=== PATIENT | female | born 1960 | race Caucasian/White ===

== ENCOUNTER 2018-10-04 21:02 | Emergency (ER) | payer OTHER ==
--- OUTSIDE RECORDS SUMMARY | 2018-10-04 21:07 | XMS REPORT ---
:1960 [facility] Address [address] [place] [address] Care Team Providers Name Role Phone ELLIE ARIAS Unavailable Unavailable Problems This patient has no known problems. Allergies, Adverse Reactions, Alerts This patient has no known allergies or adverse reactions. Medications This patient has no known medications. Results Test Description Test Time Test Comments Text Results Atomic Results Result Comments MR, BRAIN, WITH 2018-09-02 14:47:00 FINAL REPORT MR , BRAIN, WITH \T\ WITHOUT CONTRAST INDICATION: NEUROFIBROMOTOSIS TECHNIQUE: Multiplanar, multisequence MR imaging of the brain was obtained before and after uneventful administration of gadolinium contrast. COMPARISON: January 27, 2018 FINDINGS:Redemonstration of innumerable parafalcine and predominantly left sided meningiomas with stable mass effect but no underlying parenchymal edema. There is no abnormal parenchymal enhancement. No infarct or hemorrhage is present. Deviation of the midline falx anteriorly is stable. Invasion of the superior sagittal sinus anteriorly again demonstrated with compensatory dilated venous structure in the left anterior frontal region. There is distention of the internal auditory canals bilaterally, also unchanged compared to prior examination. Left extension into the CPA is stable. There is minimal mass effect on the cerebellum without edema or invasion. Ventricular configuration and included minimal surfaces are unremarkable. No abnormal signal characteristics are identified within the calvarium or skull base. There is no paranasal sinus disease. Orbital contents are unremarkable for technique. 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 Signed: JR Pappas Robert MDReport Verified Date/Time: 09/02/2018 14:47:22 Reading Location: [address] Neuro Reading Room , SPINE, CERVICAL, 2018-09-02 14:26:00 FINAL REPORT MRI WITH cervical, thoracic, and lumbar spine with and without contrast 09/02/2018 2:22 PM CLINICAL HISTORY: NEUROFIBROMATOSIS TECHNIQUE: MRI of the cervical, thoracic, and lumbar spine was performed utilizing the following sequences: Sagittal T1, T2, STIR; axial T1 and T2; postcontrast sagittal and axial T1. COMPARISON: None available FINDINGS: There is no mass or abnormal enhancement within or about the spine. There is no fracture or malalignment. Bone marrow signal intensity is non concerning. The spinal cord is normal in size and signal intensity. 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 Cervical and thoracic spinal canal diameter within normal limits. There are mild degenerative changes, without additional central canal or remarkable foraminal stenosis. There is a 14 mm enhancing lesion in the posterior right lobe of the thyroid gland. The paraspinal musculature is intact. IMPRESSION: 1. No evidence for neurofibromatosis within or about the spine. 2. Indeterminate right thyroid nodule, for which carcinoma cannot be excluded and further evaluation with ultrasound is recommended. Signed: Clovis [facility] Verified Date/Time: 09/02/2018 14:26:16 Reading Location: [facility] Radiology Reading Room , SPINE, LUMBAR, 2018-09-02 14:26:00 FINAL REPORT MRI WITH cervical, thoracic, and lumbar spine with and without contrast 09/02/2018 2:22 PM CLINICAL HISTORY: NEUROFIBROMATOSIS TECHNIQUE: MRI of the cervical, thoracic, and lumbar spine was performed utilizing the following sequences: Sagittal T1, T2, STIR; axial T1 and T2; postcontrast sagittal and axial T1. COMPARISON: None available FINDINGS: There is no mass or abnormal enhancement within or about the spine. There is no fracture or malalignment. Bone marrow signal intensity is non concerning. The spinal cord is normal in size and signal intensity. 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 Cervical and thoracic spinal canal diameter within normal limits. There are mild degenerative changes, without additional central canal or remarkable foraminal stenosis. There is a 14 mm enhancing lesion in the posterior right lobe of the thyroid gland. The paraspinal musculature is intact. IMPRESSION: 1. No evidence for neurofibromatosis within or about the spine. 2. Indeterminate right thyroid nodule, for which carcinoma cannot be excluded and further evaluation with ultrasound is recommended. Signed: Clovis Chang Verified Date/Time: 09/02/2018 14:26:16 Reading Location: [facility] Radiology Reading Room , SPINE, THORACIC, 2018-09-02 14:26:00 FINAL REPORT MRI WITH cervical, thoracic, and lumbar spine with and without contrast 09/02/2018 2:22 PM CLINICAL HISTORY: NEUROFIBROMATOSIS TECHNIQUE: MRI of the cervical, thoracic, and lumbar spine was performed utilizing the following sequences: Sagittal T1, T2, STIR; axial T1 and T2; postcontrast sagittal and axial T1. COMPARISON: None available FINDINGS: There is no mass or abnormal enhancement within or about the spine. There is no fracture or malalignment. Bone marrow signal intensity is non concerning. The spinal cord is normal in size and signal intensity. 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 Cervical and thoracic spinal canal diameter within normal limits. There are mild degenerative changes, without additional central canal or remarkable foraminal stenosis. There is a 14 mm enhancing lesion in the posterior right lobe of the thyroid gland. The paraspinal musculature is intact. IMPRESSION: 1. No evidence for neurofibromatosis within or about the spine. 2. Indeterminate right thyroid nodule, for which carcinoma cannot be excluded and further evaluation with ultrasound is recommended. Signed: Clovis Chang Verified Date/Time: 09/02/2018 14:26:16 Reading Location: [facility] Radiology Reading Room -CREATININE 2018-09-02 12:06:00 Test Item Value Reference Range Comments POC-CREATININE (BEAKER) (test 0.8 mg/dL 0.6-1.3 TESTED AT [facility] [place]7 [id number]) [facility] [address] POC-EGFR (OMIDAKER) (test 74 mL/min/1.73M2 [id number]) MR, BRAIN, [id number] 14:35:00FINAL REPORT MRI Brain with and without contrast [facility] protocol 01/27/2018 2:19 PM CLINICAL HISTORY: meningioma TECHNIQUE: Multiplanar, multisequence MR imaging of the brain wasperformed, utilizing the following imaging sequences: Axial T1, T2, FLAIR, GRE, DWI/ADC; sagittal T1; postcontrast axial, sagittal, and coronal T1. Thin section axial T2 FLAIR and pre and post contrastT1 FMP imaging sequences were obtained for intraoperative neuronavigation purposes. COMPARISON: Noneavailable. FINDINGS: There are multifocal calcified and noncalcified meningiomas along the falx cerebri, overlying the left frontal and parietal lobes, within the anterior left middle cranial fossa, and potentially within the left olfactory groove. Tumors in the left greater than right internal auditory canals, with extension into the left cerebellopontine angle cistern, may reflect schwannomas and/or meningiomas. The dominant tumoral focus lies along the left falx cerebri, extending over the parasagittal left frontal convexity. Approximate tumor dimensions are 6.9 cm AP by 3.7 cm transverse by 3.8cm craniocaudal. There is invasion of the adjacent superior sagittal sinus. There is deformation of the subjacent brain parenchyma, without compressive edema. There is rightward bowing of the falx cerebri, without parenchymal herniation. There is no infarct, hematoma, hydrocephalus, or extra-axial collection. Normal appearing flow-voids are present in the remaining intracranial vascular structures. The sellar and pineal regions, craniocervical junction, orbits, face, and remainder of the skull base are unremarkable. IMPRESSION: 1. Findings suggesting neurofibromatosis type 2. 2. Dominant left falcine/parasagittal frontal meningioma with associated superior sagittal sinus invasion but no current compressive edema. Signed: Clovis Chang MDRrománort Verified Date/Time: 01/27/2018 14:35:37 Reading Location: [facility] Radiology Reading Room Electronically signed by: CLOVIS CHANG M.D. on 02:35 PM
--- OUTSIDE RECORDS SUMMARY | 2018-10-04 21:07 | XMS REPORT | Clinical Summary ---
:1960 Author Organization [facility] Address [address] [place] [address] Care Team Providers Name Role Phone Pcp, No Primary Care Provider Unavailable Allergies No Known Allergies Medications Not on file Active Problems Not on file Encounters Date Type Specialty Care Team Description 09/02/2018 Hospital Encounter Radiology Edi Singh Neurofibromatosis (HCC) 09/02/2018 Hospital Encounter Radiology Edi Singh Neurofibromatosis (HCC) 09/02/2018 Hospital Encounter Radiology Edi Singh Neurofibromkathi (HCC) 09/02/2018 Hospital Encounter Radiology Edi Singh Neurofibromatosis (HCC) 08/23/2018 Hospital Encounter Radiology Edi Singh Neurofibromkathi (HCC) 08/23/2018 Hospital Encounter Radiology Edi Singh Neurofibromatosis (HCC) 08/23/2018 Hospital Encounter Radiology Edi Singh Neurofibromkathi (HCC) 08/05/2018 Outside Orders Radiology Edi Singh Neurofibromatosis (HCC ) (Primary Dx) 01/27/2018 Hospital Encounter Radiology Edi Singh Meningioma (HCC) 01/07/2018 Outside Orders Edi Singh, Meningioma (HCC) (Primary MD Dx) after 10/03/2017 Social History Tobacco Use Types Packs/Day Years Used Date Never Assessed Sex Assigned at Date Recorded Not on file Job Start Date Occupation Industry Not on file Not on file Not on file Travel History Travel Start Travel End No recent travel history available. Last Filed Vital Signs Not on file Plan of Treatment Not on file Procedures Procedure Name Priority Date/Time Associated Diagnosis Comments MR BRAIN WITHOUT & Routine 09/02/2018 2:33 Neurofibromatosis (HCC) Results for this WITH IV CONTRAST PM [employer] procedure are in the results section. MR CERVICAL SPINE Routine 09/02/2018 2:33 Neurofibromatosis (HCC) Results for this W/WO CONTRAST PM [employer] procedure are in the results section. MR THORACIC SPINE Routine 09/02/2018 2:00 Neurofibromatosis (HCC) Results for this W & WO CONTRAST PM [employer] procedure are in the results section. MR LUMBAR SPINE W Routine 09/02/2018 1:58 Neurofibromatosis (HCC) Results for this & WO CONTRAST PM [employer] procedure are in the results section. POCT-CREATININE Routine 09/02/2018 12:03 Results for this PM [employer] procedure are in the results section. MR BRAIN WITHOUT & Routine 01/27/2018 1:35 Meningioma (HCC) Results for this WITH IV CONTRAST PM CDT procedure are in the results section. after 10/03/2017 Results MR cervical spine without & with IV contrast (09/02/2018 2:33 PM [employer]) Narrative Performed At FINAL REPORT [employer] [facility] MRI cervical, thoracic, and lumbar spine with and [...] with ultrasound is recommended. Signed: Clovis Chang MD Report Verified Date/Time:09/02/2018 14:26:16 Reading Location: [facility] Radiology Reading Room Procedure Note Interface, External Ris In - 09/02/2018 2:33 PM [employer] FINAL REPORT MRI cervical, thoracic, and lumbar spine with and [...] with ultrasound is recommended. Signed: Clovis Chang MD Report Verified Date/Time: 09/02/2018 14:26:16 Reading Location: [facility] Radiology Reading Room Performing Organization Address City/State/Zipcode Phone Number [employer] MR brain without & with IV contrast (09/02/2018 2:33 PM [employer])Only the most recent of2 resultswithin the time period is included. Narrative Performed At FINAL REPORT [employer] MR, BRAIN, WITH \T\ WITHOUT CONTRAST INDICATION: NEUROFIBROMOTOSIS TECHNIQUE: Multiplanar, multisequence MR imaging of the brain was obtained before and after uneventful administration of gadolinium contrast. COMPARISON: January 27, 2018 FINDINGS: Redemonstration of innumerable parafalcine and predominantly left sided [...] neurofibromatosis type II. Signed: JR Pappas Robert MD Report Verified Date/Time:09/02/2018 14:47:22 Reading Location: [address] Neuro Reading Room Procedure Note Interface, External Ris In - 09/02/2018 2:49 PM [employer] FINAL REPORT MR, BRAIN, WITH \T\ WITHOUT CONTRAST INDICATION: NEUROFIBROMOTOSIS TECHNIQUE: Multiplanar, multisequence MR imaging of the brain was obtained before and after uneventful administration of gadolinium contrast. COMPARISON: January 27, 2018 FINDINGS: Redemonstration of innumerable parafalcine and predominantly left sided [...] neurofibromatosis type II. Signed: JR Pappas Robert MD Report Verified Date/Time: 09/02/2018 14:47:22 Reading Location: [facility] Neuro Reading Room Performing Organization Address City/State/Zipcode Phone Number [employer] MR thoracic spine without & with IV contrast (09/02/2018 2:00 PM [employer]) Narrative Performed At FINAL REPORT [facility] MRI cervical, thoracic, and lumbar spine with and [...] with ultrasound is recommended. Signed: Clovis Chang MD Report Verified Date/Time:09/02/2018 14:26:16 Reading Location: [facility] Radiology Reading Room Procedure Note Interface, External Ris In - 09/02/2018 2:33 PM [employer] FINAL REPORT MRI cervical, thoracic, and lumbar spine with and [...] with ultrasound is recommended. Signed: Clovis Chang MD Report Verified Date/Time: 09/02/2018 14:26:16 Reading Location: [facility] Radiology Reading Room Performing Organization Address City/State/Zipcode Phone Number [facility] MR lumbar spine without & with IV contrast (09/02/2018 1:58 PM [employer]) Narrative Performed At FINAL REPORT [facility] MRI cervical, thoracic, and lumbar spine with and [...] with ultrasound is recommended. Signed: Clovis Chang MD Report Verified Date/Time:09/02/2018 14:26:16 Reading Location: [facility] Radiology Reading Room Procedure Note Interface, External Ris In - 09/02/2018 2:33 PM [employer] FINAL REPORT MRI cervical, thoracic, and lumbar spine with and [...] with ultrasound is recommended. Signed: Clovis Chang MD Report Verified Date/Time: 09/02/2018 14:26:16 Reading Location: [facility] Radiology Reading Room Performing Organization Address City/State/Zipcode Phone Number [employer] POC-Creatinine (09/02/2018 12:03 PM [employer]) POC-Creatinine 0.8Comment: TESTED AT 0.6 - 1.3 mg/dL [facility] [address] [facility] [address] POC-EGFR 74 mL/min/1.73M2 [facility] Specimen Blood Narrative Performed At Performing Organization Address City/[facility]/Zipcode Phone Number [facility] MEDICAL [address] [place] [address] CENTER after 10/03/2017 Insurance Payer Benefit Plan / Group Subscriber ID Type Phone Address [facility] CHOICE xxxxxxxxxxxx HMO/POS [phone] CHOICE EXCHANGE
[2018-10-04] MEDS ORDERED: NA CHLORIDE 0.9% 1,000 ML ONE (21:27)
[2018-10-04] MEDS ORDERED: ONDANSETRON 4 MG/2 ML VIAL ONE (21:27)
[2018-10-04 21:50] LABS: Absolute Lymphocytes (CBC) 0.3 K/uL (0.7-4.9); Absolute Monocytes 0.7 K/uL (0.1-1.3); Absolute Neutrophil 14.7 K/uL (1.8-8.0); Basophils % 0.4 % (0-1.3); Eosinophils % 0.5 % (0-4.4); Hematocrit 48.8 % (36.0-45.0); Lymphocytes % 1.9 % (15.3-44.8); MPV 8.6 fL (7.6-11.3); Monocytes % 4.2 % (3.3-12.3)
[2018-10-04 22:05] LABS: Albumin 4.1 g/dL (3.4-5.0); Bilirubin Direct 0.2 mg/dL (0-0.2); Bilirubin Total 1.1 mg/dL (0.2-1.0); Protein, Total 8.1 g/dL (6.4-8.2)
[2018-10-04 22:19] LABS: Blood Morphology Comment NOT SEEN (NOT SEEN); Platelet Estimate ADEQ
[2018-10-05] MEDS ORDERED: ONDANSETRON 4 MG/2 ML VIAL ONE (00:56)
[2018-10-05] MEDS ORDERED: NA CHLORIDE 0.9% 1,000 ML ONE (01:01)
[2018-10-05 02:40] LABS: Absolute Lymphocytes (CBC) 0.5 K/uL (0.7-4.9); Absolute Neutrophil 9.9 K/uL (1.8-8.0); Basophils % 0.2 % (0-1.3); Eosinophils % 0.3 % (0-4.4); Hematocrit 37.8 % (36.0-45.0); Lymphocytes % 4.3 % (15.3-44.8); MPV 8.1 fL (7.6-11.3); Monocytes % 8.7 % (3.3-12.3); RBC Red Blood Cell Count 4.21 M/uL (3.86-4.86)
--- NOTE | 2018-10-05 05:29 | ER ---
Nurse's Notes [facility] Name: Kvng Salvador Age: 58 yrs Sex: Female : 1960 Arrival Date: 10/04/2018 Time: 21:04 Bed 8 Private MD: Diagnosis: Vomiting;Diarrhea, unspecified;Dehydration Presentation: 10/04 21:05 Presenting complaint: EMS states: She has been having nausea, vomiting and diarrhea ed1 since about 2pm. Her daughter reports a near syncopal episode DIVISION HEAD. Transition of care: patient was not received from another setting of care. Onset of symptoms was October 04, 2018. Risk Assessment: Do you want to hurt yourself or someone else? Patient reports no desire to harm self or others. Initial Sepsis Screen: Does the patient meet any 2 criteria? No. Patient's initial sepsis screen is negative. Does the patient have a suspected source of infection? No. Patient's initial sepsis screen is negative. Care prior to arrival: None. 21:05 Method Of Arrival: EMS: [facility] ed1 21:05 Acuity: BRIAN 3 ed1 Triage Assessment: 21:11 General: Appears uncomfortable, Behavior is calm, cooperative. Pain: Denies pain. EENT: ed1 Oral mucosa is moist. Neuro: Level of Consciousness is awake, alert, obeys commands, Oriented to person, place, time, situation, Reports dizziness, since 1400 today a syncopal episode DIVISION HEAD. Cardiovascular: Denies chest pain, Heart tones S1 S2 present. Respiratory: Airway is patent Respiratory effort is even, unlabored, Respiratory pattern is regular, symmetrical, Breath sounds are clear bilaterally. Denies cough, shortness of breath. GI: Abdomen is non-distended, Bowel sounds present X 4 quads. Abd is soft and non tender X 4 quads. Reports diarrhea, nausea, vomiting, Patient currently denies abdominal pain. : No signs and/or symptoms were reported regarding the genitourinary system. Derm: Skin is intact, is healthy with good turgor, Skin is dry, Skin is normal, Skin temperature is warm. Musculoskeletal: Circulation, motion, and sensation intact. Range of motion: intact in all extremities. Historical: - Allergies: 21:11 No Known Allergies; ed1 - Home Meds: 21:11 Testosterone VR 7.5 mg/mL Apply 1mL topically every day behind knee and alternate. ed1 [Active]; metoprolol tartrate 25 mg Oral tab 0.5 tab once daily [Active]; alprazolam 0.5 mg Oral tab 1 tab daily [Active]; T3/T4 10mcg/40mcg 1.5 tab daily [Active]; Progesterone 200 mg 1 cap nightly [Active]; - PMHx: 21:11 SVT; Brain tumors; Thyroid nodule; ed1 - PSHx: 21:11 None; ed1 - Immunization history:: Adult Immunizations up to date, Flu vaccine is not up to date. It has been more than one year since last vaccine. - Social history:: Smoking status: Patient/guardian denies using tobacco. - Ebola Screening: : Patient negative for fever greater than or equal to 101.5 degrees Fahrenheit, and additional compatible Ebola Virus Disease symptoms Patient denies exposure to infectious person Patient denies travel to an Ebola-affected area in the 21 days before illness onset No symptoms or risks identified at this time. Screenin:14 Abuse screen: Denies threats or abuse. Denies injuries from another. Nutritional ed1 screening: No deficits noted. Tuberculosis screening: No symptoms or risk factors identified. Fall Risk None identified. Assessment: 21:14 General: See triage assessment. GI: Abdomen is non-distended, Bowel sounds present X 4 ed1 quads. Abd is soft and non tender X 4 quads. Reports diarrhea, nausea, vomiting, Patient currently denies abdominal pain. 22:11 Reassessment: Patient appears in no apparent distress at this time. Patient and/or ed1 family updated on plan of care and expected duration. Pain level reassessed. Patient is alert, oriented x 3, equal unlabored respirations, skin warm/dry/pink. Patient states feeling better. Patient states symptoms have improved. 23:14 Reassessment: Patient appears in no apparent distress at this time. No changes from ed1 previously documented assessment. Patient and/or family updated on plan of care and expected duration. Pain level reassessed. Patient is alert, oriented x 3, equal unlabored respirations, skin warm/dry/pink. 23:53 Reassessment: Patient appears in no apparent distress at this time. Patient and/or ed1 family updated on plan of care and expected duration. Pain level reassessed. Patient is alert, oriented x 3, equal unlabored respirations, skin warm/dry/pink. Patient denies pain at this time. Patient states feeling better. Patient states symptoms have improved. 10/05 00:45 Reassessment: Patient and/or family updated on plan of care and expected duration. Pain ed1 level reassessed. Patient is alert, oriented x 3, equal unlabored respirations, skin warm/dry/pink. Pt reports nausea returning. 01:30 Reassessment: Patient appears in no apparent distress at this time. Patient and/or ed1 family updated on plan of care and expected duration. Pain level reassessed. Patient is alert, oriented x 3, equal unlabored respirations, skin warm/dry/pink. Patient states symptoms have improved. 02:15 Reassessment: Patient appears in no apparent distress at this time. Patient and/or ed1 family updated on plan of care and expected duration. Pain level reassessed. Patient is alert, oriented x 3, equal unlabored respirations, skin warm/dry/pink. Patient states symptoms have improved. 03:15 Reassessment: Patient appears in no apparent distress at this time. No changes from ed1 previously documented assessment. Patient and/or family updated on plan of care and expected duration. Pain level reassessed. Patient is alert, oriented x 3, equal unlabored respirations, skin warm/dry/pink. Patient denies pain at this time. 04:00 Reassessment: Patient appears in no apparent distress at this time. Patient and/or ed1 family updated on plan of care and expected duration. Pain level reassessed. Patient is alert, oriented x 3, equal unlabored respirations, skin warm/dry/pink. Pt ambulatory to bathroom with steady gait. Pt states "I want to make sure I can eat and drink something before I go home." Dr. Vidales notfied. Water and crackers given. Patient states feeling better. Patient states symptoms have improved. Vital Signs: 10/04 21:11 BP 125 / 80; Pulse 95; Resp 17; Temp 97.7(O); Pulse Ox 100% on R/A; Weight 88 kg; ed1 Height 5 ft. 6 in. (167.64 cm); Pain 0/10; 22:11 BP 117 / 76; Pulse 94; Resp 20; Pulse Ox 99% on R/A; Pain 0/10; ed1 23:14 BP 98 / 63; Pulse 82; Resp 17; Pulse Ox 98% on R/A; Pain 0/10; ed1 23:53 BP 105 / 75; Pulse 82; Resp 17; Pulse Ox 98% on R/A; Pain 0/10; ed1 10/05 00:45 BP 120 / 70; Pulse 89; Resp 15; Pulse Ox 99% on R/A; Pain 0/10; ed1 01:30 BP 106 / 65; Pulse 89; Resp 20; Pulse Ox 97% on R/A; Pain 0/10; ed1 02:15 BP 105 / 66; Pulse 82; Resp 18; Pulse Ox 99% on R/A; Pain 0/10; ed1 03:15 BP 101 / 63; Pulse 78; Resp 16; Pulse Ox 98% on R/A; Pain 0/10; ed1 04:00 BP 104 / 65; Pulse 83; Resp 23; Pulse Ox 98% on R/A; Pain 0/10; ed1 10/04 21:11 Body Mass Index 31.31 (88.00 kg, 167.64 cm) ed1 ED Course: 10/04 21:04 Patient arrived in ED. ed1 21:06 Triage completed. ed1 21:07 Radames Vidales MD is Attending Physician. tw4 21:11 Arm band placed on. ed1 21:14 Patient has correct armband on for positive identification. Placed in gown. Bed in low ed1 position. Call light in reach. Side rails up X2. business associate on. Pulse ox on. NIBP on. 21:20 Lisa Wooten, RN is Primary Nurse. ed1 21:29 Accessed peripheral vein via ultrasound, utilizing dynamic ultrasound technique lp1 ,peripheral vein via ultrasound, utilizing static ultrasound technique using ,sterile technique, per hospital protocol. 22g to R Forearm. 23:30 Notified ED physician of a critical lab result(s). bands of 49% Dr Vidales notified. bb 10/05 00:[address] via stretcher. eh 00:39 CT completed. Patient tolerated procedure well. Patient moved back from CT. eh 00:51 CT Abd/Pelvis - W/Contrast In Process Unspecified. EDMS 03:15 Resting quietly. Awaiting disposition. ed1 03:15 No provider procedures requiring assistance completed. ed1 05:40 IV discontinued, intact, bleeding controlled, No redness/swelling at site. Pressure ed1 dressing applied. Administered Medications: 10/04 21:31 Drug: Zofran 4 mg Route: IVP; Site: right forearm; lp1 22:12 Follow up: Response: No adverse reaction; Nausea is decreased ed1 21:31 Drug: NS 0.9% 1000 ml Route: IV; Rate: 1 bolus; Site: right forearm; lp1 23:54 Follow up: IV Status: Completed infusion; IV Intake: 1000ml ed1 10/05 00:50 Drug: Zofran 4 mg Route: IVP; Site: right antecubital; lp1 01:30 Follow up: Response: No adverse reaction; Nausea is decreased ed1 00:55 Drug: NS 0.9% 1000 ml Route: IV; Rate: 1000 ml; Site: right antecubital; lp1 02:30 Follow up: IV Status: Completed infusion; IV Intake: 1000ml ed1 05:30 Drug: Zofran 4 mg Route: PO; ed1 05:41 Follow up: Response: Medication administered at discharge. ed1 Intake: 10/04 23:54 IV: 1000ml; Total: 1000ml. ed1 10/05 02:30 IV: 1000ml; Total: 2000ml. ed1 Outcome: 05:28 Discharge ordered by . tw4 05:40 Discharged to home ambulatory, with significant other. ed1 05:40 Condition: good 05:40 Discharge instructions given to patient, Instructed on discharge instructions, follow up and referral plans. medication usage, Demonstrated understanding of instructions, follow-up care, medications, Prescriptions given X 2. 06:02 Patient left the ED. ed1 Signatures: Dispatcher [employer] EDAustin Espinal Brenda, RN RN Lisa Henry RN RN ed1 Lisa De La Rosa RN RN lp1 Radames Vidales MD MD tw4 Corrections: (The following items were deleted from the chart) 04:19 04:00 BP 97 / 60; Pulse 83bpm; Resp 23bpm; Pulse Ox 98% RA; Pain 0/10; ed1 ed1
--- NOTE | 2018-10-05 05:29 | EDPHYS ---
Physician Documentation [facility] Name: Kvng Salvador Age: 58 yrs Sex: Female : 1960 Arrival Date: 10/04/2018 Time: 21:04 Bed 8 Private MD: BRAYDEN Physician Radames Vidales HPI: 10/05 01:58 This 58 yrs old Female presents to ER via EMS with complaints of tw4 Nausea/Vomiting/Diarrhea. 01:58 The patient presents to the emergency department with nausea, vomiting. The patient tw4 presents to the emergency department with vomiting, 15 times since last night, diarrhea, 15 times since last night. Onset: The symptoms/episode began/occurred today. The symptoms are aggravated by nothing. The symptoms are alleviated by nothing. Associated signs and symptoms: The patient has no apparent associated signs or symptoms. Severity of symptoms: At their worst the symptoms were moderate in the emergency department the symptoms are unchanged. The patient has not experienced similar symptoms in the past. Historical: - Allergies: 10/04 21:11 No Known Allergies; ed1 - Home Meds: 21:11 Testosterone VR 7.5 mg/mL Apply 1mL topically every day behind knee and alternate. ed1 [Active]; metoprolol tartrate 25 mg Oral tab 0.5 tab once daily [Active]; alprazolam 0.5 mg Oral tab 1 tab daily [Active]; T3/T4 10mcg/40mcg 1.5 tab daily [Active]; Progesterone 200 mg 1 cap nightly [Active]; - PMHx: 21:11 SVT; Brain tumors; Thyroid nodule; ed1 - PSHx: 21:11 None; ed1 - Immunization history:: Adult Immunizations up to date, Flu vaccine is not up to date. It has been more than one year since last vaccine. - Social history:: Smoking status: Patient/guardian denies using tobacco. - Ebola Screening: : Patient negative for fever greater than or equal to 101.5 degrees Fahrenheit, and additional compatible Ebola Virus Disease symptoms Patient denies exposure to infectious person Patient denies travel to an Ebola-affected area in the 21 days before illness onset No symptoms or risks identified at this time. ROS: 10/05 01:58 Constitutional: Negative for fever, chills, and weight loss, Eyes: Negative for injury, tw4 pain, redness, and discharge, Cardiovascular: Negative for chest pain, palpitations, and edema, Respiratory: Negative for shortness of breath, cough, wheezing, and pleuritic chest pain, Abdomen/GI: Negative for abdominal pain, nausea, vomiting, diarrhea, and constipation, Back: Negative for injury and pain, Skin: Negative for injury, rash, and discoloration. Exam: 01:59 Constitutional: This is a well developed, well nourished patient who is awake, alert, tw4 and in no acute distress. Head/Face: Normocephalic, atraumatic. Chest/axilla: Normal chest wall appearance and motion. Nontender with no deformity. No lesions are appreciated. Cardiovascular: Regular rate and rhythm with a normal S1 and S2. No gallops, murmurs, or rubs. Normal PMI, no JVD. No pulse deficits. Respiratory: Lungs have equal breath sounds bilaterally, clear to auscultation and percussion. No rales, rhonchi or wheezes noted. No increased work of breathing, no retractions or nasal flaring. Abdomen/GI: Soft, non-tender, with normal bowel sounds. No distension or tympany. No guarding or rebound. No evidence of tenderness throughout. Back: No spinal tenderness. No costovertebral tenderness. Full range of motion. MS/ Extremity: Pulses equal, no cyanosis. Neurovascular intact. Full, normal range of motion. Vital Signs: 10/04 21:11 BP 125 / 80; Pulse 95; Resp 17; Temp 97.7(O); Pulse Ox 100% on R/A; Weight 88 kg; ed1 Height 5 ft. 6 in. (167.64 cm); Pain 0/10; 22:11 BP 117 / 76; Pulse 94; Resp 20; Pulse Ox 99% on R/A; Pain 0/10; ed1 23:14 BP 98 / 63; Pulse 82; Resp 17; Pulse Ox 98% on R/A; Pain 0/10; ed1 23:53 BP 105 / 75; Pulse 82; Resp 17; Pulse Ox 98% on R/A; Pain 0/10; ed1 10/05 00:45 BP 120 / 70; Pulse 89; Resp 15; Pulse Ox 99% on R/A; Pain 0/10; ed1 01:30 BP 106 / 65; Pulse 89; Resp 20; Pulse Ox 97% on R/A; Pain 0/10; ed1 02:15 BP 105 / 66; Pulse 82; Resp 18; Pulse Ox 99% on R/A; Pain 0/10; ed1 03:15 BP 101 / 63; Pulse 78; Resp 16; Pulse Ox 98% on R/A; Pain 0/10; ed1 04:00 BP 104 / 65; Pulse 83; Resp 23; Pulse Ox 98% on R/A; Pain 0/10; ed1 10/04 21:11 Body Mass Index 31.31 (88.00 kg, 167.64 cm) ed1 MDM: 10/04 21:07 Patient medically screened. tw4 10/05 02:00 Data reviewed: vital signs, nurses notes. Counseling: I had a detailed discussion with tw4 the patient and/or guardian regarding: the historical points, exam findings, and any diagnostic results supporting the discharge/admit diagnosis. 05:27 Medication response: Response to treatment: the patient's symptoms have resolved after 4 treatment, and as a result, I will discharge patient. Special discussion: Based on the patient's Hx, exam, and Dx evaluation, there is no indication for emergent surgery or inpatient Tx. It is understood by the patient/guardian that if the Sx's persist or worsen they need to return immediately for re-evaluation. I discussed with the patient/guardian in detail that at this point there is no indication for admission to the hospital. It is understood, however, that if the symptoms persist or worsen the patient needs to return immediately for re-evaluation. 10/04 21:15 Order name: Basic Metabolic Panel; Complete Time: 23:41 bb 10/04 23:41 Interpretation: Normal except: CL 109; GLUC 133; BUN 23; GFR 58. tw4 10/04 21:15 Order name: CBC with Diff; Complete Time: 23:41 bb 10/04 23:42 Interpretation: Normal except: WBC 15.9; RBC 5.40; HGB 16.4; HCT 48.8; SERGE% 93.0; MPV tw4 8.6; NEUT A 14.7; LYMA 0.3. 10/04 21:15 Order name: Creatinine for Radiology; Complete Time: 03:06 bb 10/04 21:15 Order name: Hepatic Function; Complete Time: 23:42 bb 10/04 21:15 Order name: Lipase; Complete Time: 03:06 bb 10/04 22:12 Order name: Manual Differential; Complete Time: 23:42 EDMS 10/04 23:42 Interpretation: BANDS [F] 49; LYM 2; META 1. tw4 10/04 23:44 Order name: CT Abd/Pelvis - W/Contrast tw4 10/05 01:48 Order name: CBC with Diff; Complete Time: 03:06 tw 10/04 21:15 Order name: IV Saline Lock; Complete Time: 21:31 bb 10/04 21:15 Order name: Labs collected and sent; Complete Time: 21:31 bb Administered Medications: 10/04 21:31 Drug: Zofran 4 mg Route: IVP; Site: right forearm; lp1 22:12 Follow up: Response: No adverse reaction; Nausea is decreased ed1 21:31 Drug: NS 0.9% 1000 ml Route: IV; Rate: 1 bolus; Site: right forearm; lp1 23:54 Follow up: IV Status: Completed infusion; IV Intake: 1000ml ed1 10/05 00:50 Drug: Zofran 4 mg Route: IVP; Site: right antecubital; lp1 01:30 Follow up: Response: No adverse reaction; Nausea is decreased ed1 00:55 Drug: NS 0.9% 1000 ml Route: IV; Rate: 1000 ml; Site: right antecubital; lp1 02:30 Follow up: IV Status: Completed infusion; IV Intake: 1000ml ed1 05:30 Drug: Zofran 4 mg Route: PO; ed1 05:41 Follow up: Response: Medication administered at discharge. ed1 Disposition: 10/05/18 05:28 Discharged to Home. Impression: Vomiting, Diarrhea, unspecified, Dehydration. - Condition is Stable. - Discharge Instructions: Dehydration, Adult, Diarrhea, Adult, Nausea and Vomiting, Adult, Nausea and Vomiting, Adult, [id number]. - Prescriptions for Zofran 4 mg Oral Tablet - take 1 tablet by ORAL route every 12 hours As needed; 20 tablet. Lomotil 2.5- 0.025 mg Oral Tablet - take 2 tablet by ORAL route once daily As needed; 20 tablet. - Medication Reconciliation Form, Thank You Letter, Antibiotic Education, Prescription Opioid Use form. - Follow up: Private Physician; When: Upon discharge from the Emergency Department; Reason: If symptoms return, Recheck today's complaints, Continuance of care. - Problem is new. - Symptoms have improved. Signatures: Dispatcher [employer] EDIA Sarah Guerrero, RN RN Lisa Wooten, RN RN ed1 Lisa De La Rosa RN RN lp1 Radames Vidales MD MD tw4 Corrections: (The following items were deleted from the chart) 10/04 22:11 21:55 CBC Smear Scan [address]. [facility] EDIA 23:42 23:42 Normal except: WBC 15.9; RBC 5.40; HGB 16.4; HCT 48.8. tw4 tw4 10/05 06:02 05:28 10/05/2018 05:28 Discharged to Home. Impression: Vomiting; Diarrhea, unspecified; ed1 Dehydration. Condition is Stable. Forms are Medication Reconciliation Form, Thank You Letter, Antibiotic Education, Prescription Opioid Use. Follow up: Private Physician; When: Upon discharge from the Emergency Department; Reason: If symptoms return, Recheck today's complaints, Continuance of care. Problem is new. Symptoms have improved. tw4
[2018-10-05] MEDS ORDERED: ONDANSETRON 4 MG (ODT) TAB ONE (05:37)
--- NOTE | 2018-10-05 12:25 | RAD REPORT ---
EXAM DESCRIPTION: CT Abdomen and Pelvis With Intravenous Contrast CLINICAL HISTORY: The patient is 58 years old and is Female; ABD PAIN TECHNIQUE: Axial computed tomography images of the abdomen and pelvis with intravenous contrast. S agittal and coronal reformatted images were created and reviewed. This CT exam was performed using one or more of the following dose reduction techniques: automated exposure control, adjustment of t he mA and/or kV according to patient size, and/or use of iterative reconstruction technique. COMPARISON: No relevant prior studies available. FINDINGS: Lung bases: Unremarkable. No mass. No consolidation. ABDOMEN: Liver: Unremarkable. No mass. Gallbladder and bile ducts: No calcified stones. No ductal dilation. Pancreas: No ductal dilation. No mass. Spleen: Unremarkable. Adrenals: Unremarkable. No mass. Kidneys and ureters: Unremarkable. No solid mass. No hydronephrosis. Stomach and bowel: The stomach is minimally fluid filled. The small bowel is relatively normal i n caliber. Minimal stool is present throughout the colon. Suggestion of minimal mucosal thickening in volving the right colon is noted. There is no bowel obstruction. PELVIS: Appendix: The appendix is normal in caliber without surrounding inflammation. Bladder: The bladder is well distended. Reproductive: Unremarkable as visualized. ABDOMEN and PELVIS: Intraperitoneal space: Unremarkable. No free air. No significant fluid collection. Bones/joints: No acute fracture. A 1 cm lucent lesion within the right aspect of the L3 vertebra l body is present. Soft tissues: The soft tissues are normal. Vasculature: Unremarkable. No abdominal aortic aneurysm. Lymph nodes: Unremarkable. No enlarged lymph nodes. IMPRESSION: 1. Suggestion of minimal colitis involving the right colon. No bowel obstruction. 2. 1 cm lucent lesion within the right aspect of the L3 vertebral body. Findings are nonspecific and may be secondary to a small cyst, vertebral body hemangioma, or metastatic focus. Correlation with shayla vega's history is recommended. Electronically signed by: Jessica Ferguson MD 10/05/2018 12:57 AM COBOL PROGRAMMER Due to temporary technical issues with the PACS/Fluency reporting system, reports are being signed by the in house radiologist as a courtesy to ensure prompt reporting. The interpreting radiologist is f ully responsible for the content of the report.
== END 2018-10-05 06:02 | disposition home or self-care (01) ==
LOC: ER 21:02
DX: R11.2 Nausea with vomiting, unspecified (principal); R19.7 Diarrhea, unspecified; E86.0 Dehydration
CPT/HCPCS: 36415; 74177; 80048; 80076; 83690; 85025; J2405; J7030; Q9967

== ENCOUNTER 2022-10-28 06:01 | Day surgery (SDC) | payer OTHER ==
--- NOTE | 2022-10-26 10:49 | RAD REPORT ---
EXAM DESCRIPTION: RAD - Chest Pa And Lat (2 Views) - 10/26/2022 10:39 am CLINICAL HISTORY: Pre op pending ORIF left arm Chest pain. COMPARISON: Chest Pa And Lat (2 Views) dated 11/14/2021 TECHNIQUE: PA and lateral views of the chest were obtained. FINDINGS: The lungs are hyperexpanded compatible with COPD. The heart is upper limit of normal in si ze. No fracture or aggressive bony process. IMPRESSION: COPD without acute process identified. The USPSTF recommends annual screening for lung cancer with low-dose CT (LDCT) in adults aged 50 to 80 years who have a 20 pack-year smoking history and currently smoke or have quit within the past 15 years.
[2022-10-26 10:53] LABS: Hematocrit 40.5 % (36.0-45.0); Lymphocytes % 24.2 % (15.3-44.8); MCV 90.7 fL (80-100); MPV 7.8 fL (7.6-11.3); RBC Red Blood Cell Count 4.47 M/uL (3.86-4.86)
[2022-10-26 10:56] LABS: Protime INR 1.04
[2022-10-26 11:05] LABS: Potassium 4.1 mEq/L (3.5-5.1)
--- NOTE | 2022-10-26 17:35 | EKG ---
Test Date: 2022-10-26 Test Time: 10:20:55 Baby Registry Sales Consultant: MANDIE MEASUREMENT RESULTS: Intervals: Rate: 67 AR: 128 QRSD: 84 QT: 430 QTc: 454 Marlin: P: 54 AR: 128 QRS: 56 T: 56 INTERPRETIVE STATEMENTS: Normal sinus rhythm Normal ECG No previous ECG available for comparison Electronically Signed On 10-26-22 17:34:48 CDT by Chavo Collins
[2022-10-28] MEDS ORDERED: Ringers Lactate 1,000 ML IV ONE ×2 (06:21→11:24)
[2022-10-28] MEDS ORDERED: CEFAZOLIN SODIUM 1 GM/VIAL ONE (06:21)
[2022-10-28] MEDS ORDERED: dexAMETHasone 4 MG/ML VIAL ONE (07:06)
[2022-10-28] MEDS ORDERED: MIDAZOLAM HCL 2 MG/2 ML INJ ONE (07:06)
[2022-10-28] MEDS ORDERED: LIDOCAINE 1% MPF 5 ML VIAL ONE (07:06)
[2022-10-28] MEDS ORDERED: EPINEPHRINE/PF 1 MG/ML AMP ONE (07:06)
[2022-10-28] MEDS ORDERED: FENTANYL CITR 100 MCG/2 ML ONE (07:06)
[2022-10-28] MEDS ORDERED: ROPLVACAINE HCL 40 ML ONE (07:07)
[2022-10-28] MEDS ORDERED: propofoL 200 MG/20 ML VIAL IV ONE (07:59)
[2022-10-28] MEDS ORDERED: ONDANSETRON 4 MG/2 ML VIAL ONE (08:00)
[2022-10-28] MEDS ORDERED: LIDOCAINE 2% MPF 5 ML VIAL ONE (08:00)
[2022-10-28] MEDS ORDERED: NS 0.9% VIAL 20 ML ONE (08:33)
[2022-10-28] MEDS ORDERED: Phenylephrine HCl 10 MG/ML 1 ML VIAL ONE (08:33)
--- NOTE | 2022-10-28 10:04 | RAD REPORT ---
EXAM DESCRIPTION: RAD - Wrist Left 2 View - 10/28/2022 9:52 am CLINICAL HISTORY: Radial fracture FINDINGS: Fifteen intraoperative fluoroscopic spot images obtained. Fluoroscopy time 0.2 minutes Open reduction internal fixation left radial fracture by plate and screws performed Surgery done by Dr. Mcmahon
--- NOTE | 2022-10-28 10:18 | P.BOP ---
Preoperative diagnosis: left distal radius fracture Postoperative diagnosis: same Primary procedure: open reduction internal fixation 3 part left distal radius fracture Local Area Network Administrator: NONE,NONE Estimated blood loss: 3 cc Specimen: none Findings: see dictation Anesthesia: General Complications: None Implants: Acumed standard distal radius locking plate Fluids & blood products: per anesthesia record; TT: 75 mins @ 250 mmHg Transferred to: Recovery Room Condition: Good
--- NOTE | 2022-10-28 10:40 | RAD REPORT ---
EXAM DESCRIPTION: RAD - Wrist Left 2 View - 10/28/2022 10:28 am CLINICAL HISTORY: Radial fracture FINDINGS: Sideplate and screws affix a radial fracture in good alignment. Avulsion fracture ulnar styloid process No dislocation
[2022-10-28 11:11] VITALS: BP 112/68; TEMP 97.6; O2SAT 100
== END 2022-10-28 11:24 | disposition home or self-care (01) ==
LOC: OR 06:01
PROVIDERS: ATTEND Orthopaedic Surgery Sports Medicine
PROC: 0PSJ04Z Reposition Left Radius with Internal Fixation Device, Open Approach (ICD-10-PCS; principal; 2022-10-28 08:00)
DX: S52.502A Unspecified fracture of the lower end of left radius, initial encounter for closed fracture (principal)
CPT/HCPCS: 93005; 85025; 80048; 36415; 85610; 85730; 71046; 73100 ×2; 25607; A4216; J2704; J1100; J0171; J2001 ×2; J2370; J2250; J3010; J2405; J7120 ×2; J0690